=== PATIENT | male | born 1990 | race Caucasian/White ===

== ENCOUNTER 2016-12-22 21:24 | Emergency (ER) | payer SELFPAY ==
[2016-12-22 21:34] VITALS: BP 149/94
--- NOTE | 2016-12-22 22:01 | ER Document Report ---
ED General - General Chief Complaint: Finger Injury Stated Complaint: NAIL THRU RIGHT MIDDLE FINGER/NAIL STILL PRESENT Time Seen by Provider: 12/22/16 21:49 Notes: Patient is a 26-year-old male without past medical history presents with a nail stuck through his right third digit. States that he excellently did this with a nail gun while prior to arrival. She has been able to directly through the volar surface of the third digit and did enter into the fourth digit along the dorsal surface. Since that time, the patient states he has tried to remove the nail without success. Does describe a constant, dull, aching pain to the affected digit. Nothing improves or worsens the pain. No history of similar injuries in the past. His last tetanus shot was in 2008. He has not seen a primary care doctor regarding today's concerns. TRAVEL OUTSIDE OF THE [place] IN LAST 30 DAYS: No - Related Data Allergies/Adverse Reactions: No Known Allergies Allergy (Unverified 10/04/11 11:33) Past Medical History - General Information source: Patient - Social History Smoking Status: Current Every Day Smoker Frequency of alcohol use: Occasional Drug Abuse: None Lives with: Spouse/Significant other Family History: Reviewed & Not Pertinent Patient has suicidal ideation: No Patient has homicidal ideation: No Renal/ Medical History: Denies: Hx Peritoneal Dialysis - Immunizations Hx Diphtheria, Pertussis, Tetanus Vaccination: No Review of Systems - Review of Systems Notes: Constitutional: Negative for fever. Eyes: Negative for visual changes. ENT: Negative for facial injury Cardiovascular: Negative for chest injury. Respiratory: Negative for shortness of breath. Gastrointestinal: Negative for abdominal injury. Genitourinary: Negative for genital injury Musculoskeletal: Negative for back injury. Positive for right third and fourth digit injury Skin: Negative for laceration/abrasions. Neurological: Negative for head injury. Physical Exam - Vital signs Vitals: Temp Pulse Resp BP Pulse Ox 98.2 F 72 17 149/94 H 100 12/22/16 21:30 12/22/16 21:30 12/22/16 21:30 12/22/16 21:30 12/22/16 21:30 Interpretation: Normal Notes: PHYSICAL EXAMINATION: GENERAL: Well-appearing, well-nourished and in no acute distress. HEAD: Atraumatic, normocephalic. EYES: sclera anicteric, conjunctiva are normal. ENT: Moist mucous membranes. NECK: Normal range of motion LUNGS: Normal work of breathing HEART: 2+ radial pulses bilaterally EXTREMITIES: There is a nail lodged through the volar surface of the right third digit just above the level of the PIP. There is a superficial abrasion along the dorsal surface of the fourth right digit. There is full flexion and extension of the DIP, PIP and MCP against resistance of the right third and fourth digits. NEUROLOGICAL: No focal neurological deficits. Moves all extremities spontaneously and on command. PSYCH: Normal mood, normal affect. SKIN: Warm, Dry, normal turgor, no rashes or lesions noted. Course - Re-evaluation Re-evalutation: 12/22/16 22:02 Patient presents with a nail lodged through the volar aspect of his right third finger. A digital block is in place and this may will be extracted thereafter with possible suture repair. Xrays will be obtained after the nail has been removed. 12/22/16 22:23 The nail has been removed without difficulty under a complete digital block. A single 5-0 nylon stitch was placed to the site of the nail entrance due to being a somewhat gaping wound with active bleeding. The patient's tetanus shot will be removed updated at this time. Will obtain an x-ray at this point. - Vital Signs Vital signs: Temp Pulse Resp BP Pulse Ox 98.2 F 72 17 149/94 H 100 12/22/16 21:30 12/22/16 21:30 12/22/16 21:30 12/22/16 21:30 12/22/16 21:30 - Diagnostic Test Radiology reviewed: Image reviewed, Reports reviewed Radiology results interpreted by me: 12/22/16 23:20 Right hand x-ray: No acute fracture Procedures - Laceration/Wound Repair Right 3rd digit Wound length (cm): 0.5 Wound's Depth, Shape: Superficial, Contused tissue Laceration pre-procedure: Sterile PPE donned Anesthetic type: 1% Lidocaine - Digital block Volume Anesthetic (mLs): 3 Wound explored: Contaminated Irrigated w/ Saline (mLs): 500 Wound Debrided: Minimal Wound Repaired With: Sutures Suture Size/Type: 5:0 Number of Sutures: 1 Layer Closure?: No Post-procedure wound care: Sterile dressing applied Post-procedure NV exam normal: Yes Complications: No Discharge - Discharge Clinical Impression: Puncture wound of finger with foreign body without damage to nail Qualifiers: Encounter type: initial encounter Qualified Code(s): S61.249A - Puncture wound with foreign body of unspecified finger without damage to nail, initial encounter Finger laceration Qualifiers: Encounter type: initial encounter Qualified Code(s): S61.219A - Laceration without foreign body of unspecified finger without damage to nail, initial encounter Condition: Good Disposition: HOME, SELF-CARE Additional Instructions: Please return to your primary doctor, the ED, or an urgent care in 7 days for suture removal. Return immediately if you develop spreading redness around the wound, pus from the wound, worsening pain, or a fever of >100.4. Keep the area clean and dry. Wash gently with soap and water twice daily and cover with antibiotic ointment.
[2016-12-22] MEDS ORDERED: DIPH/PERTUSS(ACELL)/TETANUS VAC/PF 0.5 ML SYR (>=10YO) IM ONE (22:23)
[2016-12-22] MEDS ORDERED: IBUPROFEN 600 MG TABLET PO ONE (22:23)
--- NOTE | 2016-12-22 23:07 | RADIOLOGY REPORT (SQ) ---
EXAM DESCRIPTION: HAND RIGHT 2 VIEWS COMPLETED DATE/TIME: 12/22/2016 10:39 pm REASON FOR STUDY: eval fx 3rd finger COMPARISON: None. EXAM PARAMETERS: NUMBER OF VIEWS: Two view. TECHNIQUE: AP, lateral radiographic images acquired of the right hand. LIMITATIONS: None. FINDINGS: MINERALIZATION: Normal. BONES: No acute fracture or dislocation. No worrisome bone lesions. JOINTS: No effusions. SOFT TISSUES: No soft tissue swelling. No foreign body. OTHER: No other significant finding. IMPRESSION: NO RADIOGRAPHIC EVIDENCE OF ACUTE INJURY. TECHNICAL DOCUMENTATION: JOB ID: [id number] [employer]- All Rights Reserved
== END 2016-12-22 23:19 | disposition home or self-care (01) ==
LOC: ER 21:24
PROC: 0HQFXZZ Repair Right Hand Skin, External Approach (ICD-10-PCS; principal; 2016-12-22)
DX: S61.242A Puncture wound with foreign body of right middle finger without damage to nail, initial encounter (principal); W29.4XXA Contact with nail gun, initial encounter; Z23 Encounter for immunization; F17.200 Nicotine dependence, unspecified, uncomplicated
CPT/HCPCS: 90471; 90715; 99283

== ENCOUNTER 2017-01-09 09:44 | Emergency (ER) | payer SELFPAY ==
--- NOTE | 2017-01-09 10:31 | ER Document Report ---
HPI - HPI Patient complains to provider of: Swelling to his right hand finger Onset: Yesterday Quality of pain: Achy Context: 26-year-old male was bitten on his dorsal right index finger yesterday afternoon while weed whacking. He did not see or feel a bite but he started itching could see a bite site in the distal right finger. Today he has some swelling to his dorsal right hand and some discomfort over his MCP joints. He has been taking some Benadryl. Finger was more swollen yesterday than it is today. Exacerbated by: Denies Relieved by: Denies - ROS ROS below otherwise negative: Yes Systems Reviewed and Negative: Yes All other systems reviewed and negative Past Medical History - General Information source: Patient - Social History Smoking Status: Current Every Day Smoker Smoking Education Provided: Yes Frequency of alcohol use: None Drug Abuse: None Lives with: Family Family History: Reviewed & Not Pertinent Patient has suicidal ideation: No Patient has homicidal ideation: No - Medical History Medical History: Negative Renal/ Medical History: Denies: Hx Peritoneal Dialysis Surgical Hx: Negative - Immunizations Hx Diphtheria, Pertussis, Tetanus Vaccination: No Vertical Provider Document - CONSTITUTIONAL Agree With Documented VS: Yes Exam Limitations: No Limitations General Appearance: No Apparent Distress - INFECTION CONTROL TRAVEL OUTSIDE OF THE [place] IN LAST 30 DAYS: No - HEENT HEENT: Normocephalic - NECK Neck: Supple - MUSCULOSKELETAL/EXTREMETIES Musculoskeletal/Extremeties: MAEW, FROM, Non-Tender Notes: Swelling to dorsal right hand that is not red or hot. Neurovascular intact. Bite site distal dorsal right index finger is not inflamed or tender. No signs of infection. - NEURO Level of Consciousness: Awake, Alert, Appropriate Motor/Sensory: No Motor Deficit, No Sensory Deficit - DERM Integumentary: Warm Discharge - Discharge Clinical Impression: Swollen insect bite right hand Condition: Good Disposition: HOME, SELF-CARE Instructions: Swollen Insect Bite or Sting ([facility]), Use of Diphenhydramine, Use of Etxh-Fgs-Chqorld Ibuprofen ([facility]), Elevate the Injury ([facility]) Additional Instructions: elevate hand motrin for inflammation benadryl for itcing to er any increased pain, red, hot fever Please complete the patient satisfaction survey if you get one, and return it.. If you do not receive a survey, then you can go to the [facility] website, [email or web address] and place your comments about your very good care. Thank you very much. It was a pleasure being your medical provider today.
[2017-01-09 10:46] VITALS: BP 125/74
== END 2017-01-09 11:03 | disposition home or self-care (01) ==
LOC: ER 09:44
DX: S60.460A Insect bite (nonvenomous) of right index finger, initial encounter (principal); W57.XXXA Bitten or stung by nonvenomous insect and other nonvenomous arthropods, initial encounter; Y93.H9 Activity, other involving exterior property and land maintenance, building and construction; F17.200 Nicotine dependence, unspecified, uncomplicated; Z71.6 Tobacco abuse counseling
CPT/HCPCS: 99283

== ENCOUNTER 2018-05-19 13:36 | Emergency (ER) | payer SELFPAY ==
[2018-05-19 13:57] VITALS: BP 138/84
[2018-05-19] MEDS ORDERED: LIDOCAINE 1% INJ-PF (10 MG/ML) 30 ML SDV INJ ONE (14:14)
[2018-05-19] MEDS ORDERED: HYDROCODONE/ACETAMINOPHEN 5-325 MG TABLET PO ONE (14:15)
[2018-05-19] MEDS ORDERED: DIPH/PERTUSS(ACELL)/TETANUS VAC/PF 0.5 ML SYR (>=10YO) IM ONE (14:38)
--- NOTE | 2018-05-19 15:19 | RADIOLOGY REPORT (SQ) ---
EXAM DESCRIPTION: FINGER LEFT COMPLETED DATE/TIME: 05/19/2018 2:55 pm REASON FOR STUDY: left index finger, laceration with saw COMPARISON: None. NUMBER OF VIEWS: Three views. TECHNIQUE: AP, lateral, and oblique images acquired of the left index finger LIMITATIONS: None. FINDINGS: MINERALIZATION: Normal. BONES: Cortical disruption with fragmentation involving the radial aspect of the 2nd digit middle pha lanx diaphysis. SOFT TISSUES: Soft tissue irregularity overlies the injury site. OTHER: No other significant finding. IMPRESSION: Index finger soft tissue irregularity with underlying osseous injury as above. COMMENT: SITE OF TRAUMA/COMPLAINT MARKED/STAMP COMPLETED: NOT APPLICABLE. TECHNICAL DOCUMENTATION: JOB ID: [id number] [employer]- All Rights Reserved Reading location - IP/workstation name: [email or web address]
[2018-05-19] MEDS ORDERED: NEOMY/BACITRAC ZN/POLY OINT 15 GM TP ONE (15:29)
--- NOTE | 2018-05-19 15:45 | ER Document Report ---
ED General - General Chief Complaint: Laceration Stated Complaint: FINGER INJURY Time Seen by Provider: 05/19/18 14:29 Information source: Patient Notes: Patient is a 27-year-old male comes emergency room with a laceration to his left index finger which was caused by a sawsall. Patient states he was just finishing up putting in the frame of the door and the soles all slipped and got him across the top and side of his left index finger. Patient came to ER to have it looked at. Denies any other injuries. Patient states he is up-to-date on his tetanus shot. TRAVEL OUTSIDE OF THE [place] IN LAST 30 DAYS: No - HPI Patient complains to provider of: Index finger laceration Onset: Just prior to arrival Onset/Duration: Sudden, Worse Quality of pain: Throbbing Severity: Moderate Pain Level: 3 Exacerbated by: Movement Relieved by: Remaining still, Other - Applying pressure Recently seen / treated by doctor: No - Related Data Allergies/Adverse Reactions: No Known Allergies Allergy (Verified 01/09/17 09:45) Past Medical History - General Information source: Patient - Social History Smoking Status: Current Every Day Smoker Cigarette use (# per day): Yes Chew tobacco use (# tins/day): No Smoking Education Provided: Yes Frequency of alcohol use: Occasional Drug Abuse: None Family History: Reviewed & Not Pertinent Renal/ Medical History: Denies: Hx Peritoneal Dialysis - Immunizations Hx Diphtheria, Pertussis, Tetanus Vaccination: No Review of Systems - Review of Systems Constitutional: No symptoms reported EENT: No symptoms reported Cardiovascular: No symptoms reported Respiratory: No symptoms reported Gastrointestinal: No symptoms reported Genitourinary: No symptoms reported Male Genitourinary: No symptoms reported Musculoskeletal: Joint pain, Joint swelling Skin: Other - Laceration Hematologic/Lymphatic: No symptoms reported Neurological/Psychological: No symptoms reported -: Yes All other systems reviewed and negative Physical Exam - Vital signs Vitals: Temp Pulse Resp BP Pulse Ox 98.3 F 77 20 138/84 H 99 05/19/18 13:56 05/19/18 13:56 05/19/18 13:56 05/19/18 13:56 05/19/18 13:56 Interpretation: Hypertensive - Notes Notes: Patient is a well-nourished well-developed 27-year-old male who is in no apparent distress on physical examination. - General General appearance: Alert In distress: None - HEENT Head: Normocephalic, Atraumatic Eyes: Normal - Respiratory Respiratory status: No respiratory distress Chest status: Nontender Breath sounds: Normal. No: Rales, Rhonchi, Stridor, Wheezing Chest palpation: Normal - Cardiovascular Rhythm: Regular Heart sounds: Normal auscultation Murmur: No - Abdominal Inspection: Normal Distension: No distension Bowel sounds: Normal Tenderness: Nontender Organomegaly: No organomegaly - Extremities General upper extremity: Tender, Normal color, Normal ROM, Normal strength. No : Normal inspection General lower extremity: Normal inspection, Nontender, Normal ROM, Normal strength Hand: Tender, Laceration, No evidence of human bite, No evidence of FB, Other - Examination patient's left index finger shows there to be a 2 cm laceration extending from the midline of the dorsal aspect around the palmar side. Further evaluation of that area shows patient to have good cap refill in the nail bed of the left index finger. Patient has flexion and extension of the distal tip both passively and actively. Patient also displays good strength against resistance with the distal tip in both flexion and extension. In other words there is no tendon involvement that I can see on physical inspection. Further examination after cleaning shows that there to be a arterial bleed that is pumping slightly patient bleeding significantly prior to suturing. Patient also has feeling and distally from the wound.. No: Tendon deficit - Skin Skin irregularity: Laceration - See hand above for full description Course - Re-evaluation Re-evalutation: 05/19/18 15:53 I have informed patient that due to the location of the laceration he was exceptionally melquiades he did not get even more bone involvement and or tendon involvement. He has good movement to resistance with good strength and good cap refill in the nail bed of the finger. Of informed him that he has to be careful because sutures can be pulled out if he goes back to work it needs to be covered and splinted. - Vital Signs Vital signs: Temp Pulse Resp BP Pulse Ox 98.3 F 77 20 138/84 H 99 05/19/18 13:56 05/19/18 13:56 05/19/18 13:56 05/19/18 13:56 05/19/18 13:56 Procedures - Immobilization Left Finger 2nd digit Time completed: 15:57 Pre-Proc Neuro Vasc Exam: Normal Immobilizer type: Finger splint (Static) Performed by: PCT Post-Proc Neuro Vasc Exam: Normal, Unchanged from pre-exam Alignment checked and good: Yes - Laceration/Wound Repair Left Finger 2nd digit Time completed: 15:55 Wound length (cm): 2 Wound's Depth, Shape: Into muscle, Linear Laceration pre-procedure: Sterile PPE donned, Sterile drapes applied, Shur- Clens applied Anesthetic type: 1% Lidocaine Volume Anesthetic (mLs): 2 Wound explored: Clean Irrigated w/ Saline (mLs): 200 Wound Debrided: Minimal Wound Repaired With: Sutures Suture Size/Type: 4:0, Prolene Number of Sutures: 6 Post-procedure wound care: Sterile dressing applied, Splint applied Post-procedure NV exam normal: Yes Complications: No Notes: 05/19/18 15:56 We applied a aluminum finger splint for protection and this was placed by the PCT was checked by me that the emergency room physician speech and language assistant was found to be in good position with patient having good vascular flow after application. Discharge - Discharge Clinical Impression: Finger laceration Qualifiers: Encounter type: initial encounter Finger: index finger Damage to nail status: with damage Foreign body presence: without foreign body Laterality: left Qualified Code(s): S61.311A - Laceration without foreign body of left index finger with damage to nail, initial encounter Condition: Stable Disposition: HOME, SELF-CARE Instructions: Laceration Care ([facility]) Additional Instructions: As we discussed if you are not careful you can pull out the sutures. On my physical exam you have 100% function of that distal tip of the finger and it can stay that way if you are careful. Wear the splint for at least 3-4 days to protect it from hyperextending or from causing the sutures to come out by bending. Change the dressing at least twice a day and when wet and dirty. When should return to ER in 10-12 days for suture removal or sooner if it does not appear that it is healing appropriately. Should you have any concerns or problems return to ER for recheck. Prescriptions: Cephalexin Monohydrate [Keflex 500 mg Capsule] 500 mg PO Q6H 7 Days #28 capsule Hydrocodone/Acetaminophen [[place] 5-325 mg Tablet] 1 tab PO Q4 PRN #8 tablet PRN Reason: Forms: Smoking Cessation Education, Parent Work Note
== END 2018-05-19 16:07 | disposition home or self-care (01) ==
LOC: ER 13:36
PROC: 0HQGXZZ Repair Left Hand Skin, External Approach (ICD-10-PCS; principal; 2018-05-19)
DX: S61.211A Laceration without foreign body of left index finger without damage to nail, initial encounter (principal); W29.8XXA Contact with other powered hand tools and household machinery, initial encounter; F17.210 Nicotine dependence, cigarettes, uncomplicated
CPT/HCPCS: 99283; 73140; 12001; J3490 ×2